=== PATIENT | female | born 1950 | race Caucasian/White ===

== ENCOUNTER → 2018-01-11 | Outpatient (CLI) | payer MEDICARE, OTHER ==
[~2018-01-11] MED LIST: CYCL10 PO; KETO10 PO; OXYACE5T PO; RXOXYACE PO
== END | disposition home or self-care (01) ==
LOC: LAB SHORT 10:00 → PLD 10:00
DX: D22.9 Melanocytic nevi, unspecified (principal); L82.1 Other seborrheic keratosis
CPT/HCPCS: 88305

== ENCOUNTER → 2021-03-14 | Outpatient (CLI) | payer MEDICARE, OTHER | LOC: LAB 11:00 → LAB SHORT 11:00 | DX: D48.5 Neoplasm of uncertain behavior of skin (principal); L57.0 Actinic keratosis | CPT/HCPCS: 88305 ==